=== PATIENT | female | born 1960 | race Caucasian/White ===

== ENCOUNTER → 2017-02-14 | Day surgery (SDC) | payer BC ==
[2017-02-12 13:24] LABS: Basophils # (auto) 0.1 uL; Basophils % (auto) 0.8 % (0.0-2.0); DEFINITIVE Y; Eosinophils # (auto) 0.5 uL; Eosinophils % (auto) 7.8 % (0.0-7.0); Hematocrit 44.4 % (36.0-46.0); Hemoglobin 14.7 g/dL (12.2-16.2); Lymphocytes # (auto) 1.6 uL; Lymphocytes % (auto) 24.8 % (10.0-50.0); Mean Corpuscular Hemoglobin 26.7 pg (28.0-32.0); Mean Corpuscular Hgb Conc. 33.2 g/dL (32.0-36.0); Mean Corpuscular Volume 80.6 fL (80.0-100.0); Mean Platelet Volume 11.3 fL (7.4-10.4); Monocytes # (auto) 0.4 uL; Monocytes % (auto) 6.4 % (0.0-12.0); Neutrophils # (auto) 3.9 uL; Neutrophils % (auto) 60.2 % (37.0-80.0); Platelet Count (auto) 247 10^3/uL (140-450); Red Cell Distribution Width 13.2 % (11.6-16.0); SUSPECT Y; White Blood Cell 6.5 10^3/uL (4.4-10.8)
[2017-02-12 13:33] LABS: INR 0.92 (0.9-1.15); Partial Thromboplastin Time 24.3 sec (22.64-33.71)
[~2017-02-14] VITALS: Ht 170.2 cm; Wt 89.8 kg
[~2017-02-14] MED LIST: ATEN-60 PO; FLUMAZENIL 0.1 MG/ML INJ 10ML MDV IV ONE; LEVO25TA49 PO; LIDOCAINE VISCOUS 2% 15ML UD ONE; NALOXONE HCL 0.4 MG/ML VIAL ONE; SODIUM CHLORIDE LOCK 10 ML ONE; diphenhdrAMINE HCL 50 MG/1 ML VL ONE
[2017-02-14] MEDS: MIDAZOLAM HCL 5 MG/ML-1ML VIAL ONE ×3 (08:55→09:02)
[2017-02-14] MEDS: fentaNYL CITRATE 100 MCG/2 ML VL ONE ×3 (08:55→09:02)
[2017-02-14 09:45] VITALS: BP 119/77
== END | disposition home or self-care (01) ==
LOC: GI 07:49
PROVIDERS: ATTEND Internal Medicine Gastroenterology
DX: K31.7 Polyp of stomach and duodenum (principal); Z90.710 Acquired absence of both cervix and uterus
CPT/HCPCS: 36415; 43239; 43248; 85025; 85610; 85730; J2250

== ENCOUNTER → 2017-04-23 | Outpatient (CLI) | payer BC ==
[~2017-04-23] MED LIST changes: -FLUMAZENIL 0.1 MG/ML INJ 10ML MDV IV ONE; -LIDOCAINE VISCOUS 2% 15ML UD ONE; -NALOXONE HCL 0.4 MG/ML VIAL ONE; -SODIUM CHLORIDE LOCK 10 ML ONE; -diphenhdrAMINE HCL 50 MG/1 ML VL ONE
[2017-04-23 12:28] LABS: Urine Bilirubin Negative (Negative); Urine Blood Negative /uL (Negative); Urine Color Yellow (Yellow); Urine Glucose Normal (Normal); Urine Ketone Negative (Negative); Urine Nitrite Negative (Negative); Urine RBC <1 /hpf (0 - 4); Urine Urobilinogen Normal (Negative); Urine pH 5.5 (5.0-8.0)
== END | disposition home or self-care (01) ==
LOC: LAB 12:01
PROVIDERS: ATTEND Obstetrics & Gynecology
DX: Z00.00 Encounter for general adult medical examination without abnormal findings (principal)
CPT/HCPCS: 81001; 87086

== ENCOUNTER → 2021-05-30 | Outpatient (CLI) | payer BC, OTHER | END | disposition home or self-care (01) | LOC: LAB 16:00 | PROVIDERS: ATTEND Family Medicine | DX: L82.1 Other seborrheic keratosis (principal) | CPT/HCPCS: 88302 ==

== ENCOUNTER → 2023-03-14 | Outpatient (CLI) | payer BC | END | disposition home or self-care (01) | LOC: XYW 15:34 | PROVIDERS: ATTEND Internal Medicine | DX: I51.7 Cardiomegaly (principal); R55 Syncope and collapse; R42 Dizziness and giddiness | CPT/HCPCS: 93306 ==